=== PATIENT | male | born 1950 | race Caucasian/White ===

== ENCOUNTER 2016-04-16 11:30 | Inpatient (IN) | payer OTHER, BC ==
[2016-04-23] MEDS ORDERED: LIDOCAINE W/ SODIUM BICARB 0.5 ML SYR ONE ×2 (05:48→12:12)
[2016-04-23] MEDS ORDERED: Lactated Ringers 1,000 ML PRIMARY IV ONE ×4 (05:49→10:52)
[2016-04-23] MEDS ORDERED: PROMETHAZINE 25 MG/1 ML VIAL IM PRN (07:06)
[2016-04-23] MEDS ORDERED: NORMAL SALINE 10 ML SYRINGE FLUSH IVP PRN (07:06)
[2016-04-23] MEDS ORDERED: fentaNYL Inj 100 MCG/2 ML VIAL IVP PRN (07:06)
[2016-04-23] MEDS ORDERED: HYDROmorphone 2 MG/1 ML IVP PRN (07:06)
[2016-04-23] MEDS ORDERED: Ketorolac Inj 30 MG, Morphine Inj 5 MG, BUPivacaine Inj 0.25% PF 150 MG SPLASH ONE ×3 (07:15)
[2016-04-23] MEDS ORDERED: Lactated Ringers 1,000 ML PRIMARY IV SCH (07:15)
[2016-04-23] MEDS ORDERED: Sodium Chloride 0.9% 2,000 ML ONE (07:24)
[2016-04-23] MEDS ORDERED: ROCURONIUM 10 MG/1 ML - 5 ML VIAL IVP ONE ×2 (07:24→08:47)
[2016-04-23] MEDS ORDERED: Sodium Chloride 0.9% 500 ML ONE ×2 (07:24→11:02)
[2016-04-23] MEDS ORDERED: LIDOCAINE MPF 2% - 5 ML (20 MG/1 ML) ONE (07:25)
[2016-04-23] MEDS ORDERED: fentaNYL Inj 250 MCG/5 ML VIAL ONE (07:26)
[2016-04-23] MEDS ORDERED: MIDAZOLAM 5 MG/1 ML ONE (07:26)
[2016-04-23] MEDS ORDERED: ceFAZolin Inj 3 GM in Sodium Chloride 0.9% 100 ML IV ONE (07:30)
[2016-04-23] MEDS ORDERED: Bacteriostatic NaCl Inj 30ml Vial ONE (07:32)
[2016-04-23] MEDS ORDERED: Gentamicin Inj 40 MG/ML VIAL ONE (07:32)
[2016-04-23] MEDS ORDERED: Sodium Chloride 0.9% vial 30 ML ONE (07:32)
[2016-04-23] MEDS ORDERED: BACITRACIN 50,000 UNIT VIAL IRRIG ONE (07:32)
[2016-04-23] MEDS ORDERED: HEPARIN 10,000 UNIT/1 ML ONE (07:33)
[2016-04-23] MEDS ORDERED: BUPivacaine Liposome/PF (Exparel) Inj 20ml vial INFIL ONE ×2 (07:33→08:45)
[2016-04-23] MEDS ORDERED: LIDOCAINE HCL 2 % 10 ML JELLY URO-JECT TOPICAL ONE (08:02)
[2016-04-23] MEDS ORDERED: KETAMINE 100 MG/1 ML - 5 ML ONE (08:39)
[2016-04-23] MEDS ORDERED: HYDROmorphone 2 MG/1 ML ONE (08:40)
[2016-04-23] MEDS ORDERED: GLYCOPYRROLATE 0.2 MG/1 ML VIAL ONE (09:42)
[2016-04-23] MEDS ORDERED: ePHEDrine Inj 50 MG/ML AMP ONE (09:42)
[2016-04-23] MEDS ORDERED: TRANEXAMIC ACID 1,000 MG / 10 ML VIAL ONE (10:05)
[2016-04-23] MEDS ORDERED: Sodium Chloride 0.9% 100 ML IV ONE (10:05)
[2016-04-23] MEDS ORDERED: TRANEXAMIC ACID 1,000 MG / 10 ML VIAL IRRIG ONE (10:05)
[2016-04-23] MEDS ORDERED: ONDANSETRON 4 MG/2 ML VIAL ONE (10:59)
[2016-04-23] MEDS ORDERED: fentaNYL Inj 100 MCG/2 ML VIAL ONE (12:15)
[2016-04-23] MEDS ORDERED: FUROSEMIDE 10 MG/1 ML - 2 ML VIAL IVP ONE (12:19)
[2016-04-23] MEDS ORDERED: FUROSEMIDE 10 MG/1 ML - 4 ML ONE (12:21)
[2016-04-23] MEDS ORDERED: Sodium Chloride 0.9% 1,000 ML ONE (12:37)
--- NOTE | 2016-04-23 13:10 | DI ---
XR HIP COMPLETE MIN 2VW U/L,04/23/2016 11:08 AM: Clinical History: Left hip pain Previous Exam: April 22, 2016 Findings: 3 views of the left hip are obtained, and demonstrate postsurgical changes consistent with a left tot al hip arthroplasty. There is a RUPA drain noted as well. Overlying skin dani are noted. Mild degenerative changes of the sacroiliac joints are seen. Impression: Status post left total hip arthroplasty.
[2016-04-23] MEDS ORDERED: diphenhydrAMINE 25 MG CAPSULE PO PRN (13:37)
[2016-04-23] MEDS ORDERED: MAG HYDROX/AL HYDROX/SIMETH 30 ML SUSP PO PRN (13:37)
[2016-04-23] MEDS ORDERED: Prochlorperazine Tab 10 MG TAB PO PRN (13:37)
[2016-04-23] MEDS ORDERED: CALCIUM CARBONATE 500 MG (TUMS) CHEWABLE TABLET PO PRN (13:37)
[2016-04-23] MEDS ORDERED: IBUPROFEN 400 MG TABLET PO PRN (13:37)
[2016-04-23] MEDS ORDERED: Ondansetron ODT Tab 8 MG TAB PO PRN (13:37)
[2016-04-23] MEDS ORDERED: MORPHINE SULFATE 2 MG/1 ML IVP PRN (13:37)
[2016-04-23] MEDS ORDERED: BISACODYL 10 MG SUPPOSITORY RECTAL PRN (13:37)
[2016-04-23] MEDS ORDERED: ACETAMINOPHEN 325 MG TABLET PO PRN (13:37)
[2016-04-23] MEDS ORDERED: BISACODYL 5 MG TABLET PO PRN (13:37)
[2016-04-23] MEDS ORDERED: MORPHINE SULFATE 10 MG/1 ML IV PRN (13:42)
[2016-04-23] MEDS ORDERED: MORPHINE SULFATE 4 MG/1 ML IV PRN (13:42)
[2016-04-23] MEDS ORDERED: MORPHINE SULFATE 2 MG/1 ML IV PRN (13:42)
--- NOTE | 2016-04-23 13:51 | ORTHO.PROG ---
Last Taken Vital Signs: Vital Signs - Last Taken Temperature 97.0 F 04/23/16 13:10 Pulse Rate 64 04/23/16 13:10 Respiratory Rate 16 04/23/16 13:10 Blood Pressure 121/79 04/23/16 13:10 Pulse Ox Subjective: Patient notes with movement of the left hip not having any significant pain. Objective: Drain has about 25 mL theKCI drain has nothing in it as of yet. Motor and sensory exam the lower extremity is good the distal ankle and toes, mild amount of swelling of the thigh. Intake and Output - 8hrs 04/22/16 04/22/16 04/23/16 04/23/16 13:59 21:59 05:59 13:59 Intake: IV 4100 OrthoPat 300 Output: Output, Urine Amount 345 Output, Estimated Blood 545 Loss Amount Other: Weight 127.459 kg Vital Signs (24 hrs) Temp Pulse Resp BP 04/23/16 13:10 97.0 F 64 16 121/79 04/23/16 13:00 97.0 F 59 L 17 120/78 04/23/16 12:50 97.0 F 64 18 120/81 04/23/16 12:40 97.0 F 60 15 109/76 04/23/16 12:25 97.2 F 69 19 122/84 04/23/16 12:15 97.2 F 68 16 123/78 04/23/16 12:00 97.2 F 66 16 113/75 04/23/16 11:55 97.2 F 72 16 115/71 04/23/16 11:50 97.2 F 72 14 110/74 04/23/16 11:45 97.2 F 70 14 113/66 04/23/16 11:40 97.2 F 73 16 104/69 04/23/16 11:35 97.2 F 83 14 115/73 04/23/16 11:29 97.2 F 82 14 118/69 04/23/16 06:27 98.2 F 101 H 18 143/97 Assessment: Left anterior total hip replacement doing well Plan: Patient will start on his Xarelto tomorrow after discussing with the hospitalist , this is for his atrial fibrillation but will also serve as DVT prophylaxis. Patient will be partial weightbearing with walker for the first 2 weeks. Physical therapy and occupational therapy daily Laboratories are pending for morning.
[2016-04-23] MEDS: HYDROcodone-APAP 10 MG-325 MG TABLET PO PRN ×3 (14:12→22:20)
[2016-04-23] MEDS: ONDANSETRON 4 MG/2 ML VIAL IVP PRN (14:12)
[2016-04-23] MEDS: Lactated Ringers 1,000 ML PRIMARY IV SCH (14:22)
--- NOTE | 2016-04-23 14:53 | CONSULT ---
Consult Note - Consult Consult Date: 04/23/16 Reason for Consult: PostOp Consulation : Ortho Requesting Physician: Dr. Claire Primary Care Provider: NONE NONE History and Physical - History of Present Illness Date and Time of Service: 04/23/2016, 1445 Chief Complaint: Left hip pain History of Present Illness: This is a very pleasant 66-year-old male tripped fibrillation, hypertension, and hip arthritis. He had his right hip surgery done about 4 years ago and since that time he has had left hip pain that is been persistent. He's been using ibuprofen, up to 6 tablets per day. However is been causing problems with his kidneys and he opted for a left anterior hip replacement with Dr. Claire today. Please see that surgical note. Thus far post surgery, he denies chest pain, denies shortness breath, but complains of nausea. Outside of his atrial fibrillation, he has not had a history of a stroke and he is on blood pressure medications. I do see that he is on any rate controlling agents based on my review of his medicines at this point, and takes Cardizem. I spoke with Dr. Claire regarding the patient's Xarelto therapy for stroke prevention for atrial fibrillation. From a surgical standpoint, it would be best to hold that for at least 24 hours, and I think I am amenable to that. There is a transient increase risk of stroke and I discussed that with the patient and his family present at bedside, but I think the surgical bleeding risks outweigh the transient increase at this time, and Xarelto will be resumed tomorrow. Past Medical History Medical History: 1. Hypertension. 2. Atrial fibrillation. 3. Hypothyroidism. 4. Bilateral hip osteoarthritis. Surgical History: 1. Tonsillectomy. 2. Right total hip replacement. 3. Umbilical hernia repair Pertinent Family History: Significant for coronary artery disease in both of his parents. Past Social History: Does not smoke or drink. . Arms. Has 2 sons and 2 [id number] as well as Gran children. Lives in [place], [place]. Tobacco Use: Never Smoker Do you dip or chew tobacco: (QUIT 2 YRS AGO) Substance Use Type: None Alcohol Use: None Review of Systems - Constitutional Constitutional: REPORTS: Negative System Review - Respiratory Respiratory: REPORTS: Negative System Review - Cardiovascular Cardiovascular: REPORTS: Negative System Review - Gastrointestinal Gastrointestinal / Abdominal: REPORTS: Nausea - Musculoskeletal Musculoskeletal: REPORTS: Joint Pain - Hips, See HPI - Neurological Neurologic: REPORTS: Negative System Review Medication / Allergies Home Medications: Home Medications Medication Instructions Recorded Confirmed Type Rivaroxaban [Xarelto] 10 mg PO DAILY tab 03/13/16 04/22/16 History Diltiazem HCl 1 tab PO BID tab 03/15/16 04/22/16 History Hydralazine HCl 1 tab PO TID tab 03/15/16 04/22/16 History Levothyroxine Sodium [Synthroid] 1 tab PO DAILY tab 03/15/16 04/23/16 History Lisinopril 1 tab PO QD tab 03/15/16 04/22/16 History Allergies/Adverse Reactions: Allergies Allergy/AdvReac Type Severity Reaction Status Date / Time No Known Allergies Allergy Unverified 04/23/16 13:40 Exam - Vitals Vital Signs: Vital Signs Temperature 97.3 F Temperature Source Oral Pulse Rate [Pulse Oximeter] 64 Pulse Rate [Apical] 64 Pulse Rate 64 Respiratory Rate 16 Blood Pressure [Right Arm] 138/86 Blood Pressure 121/79 Pulse Ox 94 Oxygen Flow Rate 3 Oxygen Flow Rate 3 Oxygen Delivery Method Nasal Cannula Height 6 ft 1 in Weight 281 lb - General General Appearance: POSITIVE: No Acute Distress, Cooperative - Head Head Exam: POSITIVE: Normal Inspection, Normocephalic, Atraumatic - Eye Eye Exam: POSITIVE: No Scleral Icterus - ENT ENT Exam: POSITIVE: Mucous Membranes Moist - Respiratory Respiratory Exam: POSITIVE: Clear to Auscultation - Bilaterally, Breathing Non Labored - Cardiovascular Cardiovascular Exam: POSITIVE: RRR, No Murmur, No Clicks, No Gallops, No Rubs, No JVD - GI/Abdominal GI/Abdominal Exam: POSITIVE: Normal Bowel Sounds, Non Tender, Non Distended, Soft - Rectal Rectal Exam: POSITIVE: Deferred - External Exam: POSITIVE: Deferred Exam: POSITIVE: Deferred - Extremities Extremities Exam: POSITIVE: No Clubbing Present, No Edema Present, No Cyanosis Present - Neurological Neurological Exam: POSITIVE: Alert, Oriented x 3, No Facial Droop, Speech Intact / Clear - Psychiatric Psychiatric Exam: POSITIVE: Normal Affect, Normal Mood Results - Labs Labs - Last 24 Hours: Labs from 04/22/2016 showed the following: Urine negative urinalysis Sodium was noted on 03/27/2016 to be the followin, potassium 3.6, chloride 107, CO2 28, BUN 20, creatinine 1.35, total protein 6.6, albumin 3.9, total bilirubin 2.4, AST 22, ALT 31, alkaline phosphatase 63 White blood cell count 6.8, hemoglobin 17.5, hematocrit 51.2, platelets 165,000 Urinalysis from 03/27/2016 showed 2+ proteins and that also appears on yesterday 's urinalysis. The patient has an antibody screen that was negative and he has A- blood type - EKG Data -: EKG Interpreted by Me Rate: Normal (Patient has atrial fibrillation based on my review of his preoperative EKG.) - EKG Data EKG Interpretation: Other Assessment and Plan - Patient Problems (1) Atrial fibrillation Current Visit: Yes Status: Acute Qualifiers: Atrial fibrillation type: chronic Qualified Description: Chronic atrial fibrillation Qualifier Code(s): (I48.2) Chronic atrial fibrillation (2) Hypertension Current Visit: Yes Status: Acute (3) Proteinuria Current Visit: Yes Status: Acute Qualifiers: Proteinuria type: unspecified Qualified Description: Proteinuria, unspecified type Qualifier Code(s): (R80.9) Proteinuria, unspecified (4) Hip arthritis Current Visit: Yes Status: Acute (5) Hypothyroidism Current Visit: Yes Status: Acute Qualifiers: Hypothyroidism type: acquired Qualified Description: Acquired hypothyroidism Qualifier Code(s): (E03.9) Hypothyroidism, unspecified - Assessment / Plan Additional Assessment/Plan Details: Resume Xarelto tomorrow. It appears it is been on 10 mg in the clinic, and a think an appropriate dose will be 20 mg by mouth daily. Continue diltiazem and blood pressure medications. With the proteinuria, he may need more extensive kidney evaluation and workup. Check his creatinine tomorrow, was 1.35 prior to surgery but now off of ibuprofen so hopefully that will improve. Probably has chronic kidney disease, stage III, but will evaluate that tomorrow. I will note that the patient does have chronic kidney disease, and is clearance is less than 60, that may mean that the patient would need a dose reduction in the Xarelto to 15 mg if his clearance is between 15-50, otherwise we may need to consider other anticoagulant choices. Thank you for this consult, will be our pleasure to continue to assist this patient during his hospital stay regarding his atrial fibrillation and hypertension and other medical issues.
[2016-04-23] MEDS ORDERED: LABETALOL 20 MG/4 ML (5 MG/1 ML) SYRINGE IVP PRN (15:17)
[2016-04-23] MEDS: ceFAZolin Inj 2gm (Premix) 2 GM in Dextrose 1 BAG IV SCH (16:13)
[2016-04-23] MEDS: DILTIAZEM 60 MG PO SCH (20:20)
[2016-04-23] MEDS: DOCUSATE 100 MG CAPSULE PO SCH (20:20)
[2016-04-23] MEDS ORDERED: DILTIAZEM 60 MG TABLET PO SCH (21:00)
[2016-04-24] MEDS: Lactated Ringers 1,000 ML PRIMARY IV SCH (00:11)
[2016-04-24] MEDS: ceFAZolin Inj 2gm (Premix) 2 GM in Dextrose 1 BAG IV SCH (00:11)
[2016-04-24] MEDS: HYDROcodone-APAP 10 MG-325 MG TABLET PO PRN ×5 (02:40→22:03)
[2016-04-24] MEDS: LEVOTHYROXINE 112 MCG TABLET PO SCH (05:34)
[2016-04-24 06:04] LABS: HEMATOCRIT 46.8 % (42.0-52.0); HEMOGLOBIN 15.5 g/dL (14.0-18.0); MEAN CORPUSCULAR HEMOGLOBIN 31.4 PG (27-31); MEAN CORPUSCULAR HGB CONC 33.1 g/dL (33-37); MEAN PLATELET VOLUME 11.2 FL (7.4-12.2); RDW COEFFICIENT OF VARIATION 13.4 % (11.5-14.5); RED BLOOD COUNT 4.94 10^6/uL (4.70-6.10); WHITE BLOOD COUNT 14.87 10^3/uL (4.8-10.8)
[2016-04-24] MEDS ORDERED: Lactated Ringers 1,000 ML PRIMARY IV SCH (06:20)
[2016-04-24 06:21] LABS: BLOOD UREA NITROGEN 29 mg/dL (7-22); BUN/CREATININE RATIO 24.16 (6-20); CALCIUM 8.8 mg/dL (8.7-10.7); CHLORIDE 106 meq/L (98-112); CREATININE 1.2 mg/dL (0.70-1.50); EST GLOMERULAR FILTRATION > 60 (>60 ml/min/1.73m(2)); GLUCOSE 154 mg/dL (78-110); SODIUM 139 meq/L (135-145)
--- NOTE | 2016-04-24 07:46 | ORTHO.PROG ---
Last Taken Vital Signs: Vital Signs - Last Taken Temperature 98.9 F 04/24/16 03:10 Pulse Rate 103 H 04/24/16 03:10 Respiratory Rate 20 04/24/16 03:10 Blood Pressure 145/98 04/24/16 03:10 Pulse Ox 91 04/24/16 05:47 Subjective: Patient feels like the pain in his hip is different than his arthritis pain. Patient trouble sleeping last night At 3 in the morning and ambulated was having some low back pain. States he did well with this with a walker maximum assist Objective: Clinically the patient with a good sensory exam of the lower extremity a good motor examination no marked swelling no bleeding or ecchymosis. Her drain was removed from deep within the soft tissues. Intake and Output - 8hrs 04/23/16 04/23/16 04/24/16 04/24/16 13:59 21:59 05:59 13:59 Intake: IV 4100 200 1419 Intake Oral Amount 640 300 OrthoPat 300 Output: Output, Drainage Amount 60 140 90 LEFT HIP/PREVENA DRAIN 60 140 90 Output, Urinary Catheter 475 375 Amount Output, Urine Amount 345 Output, Estimated Blood 545 Loss Amount Other: Percent Meal Consumed 50% Weight 127.459 kg Weight Measurement Method Estimated by Staff Laboratory Results 04/24/16 Range/Units 05:53 WBC 14.87 H (4.8-10.8) 10^3/uL RBC 4.94 (4.70-6.10) 10^6/uL Hgb 15.5 (14.0-18.0) g/dL Hct 46.8 (42.0-52.0) % MCV 94.7 H (80-90) FL MCH 31.4 H (27-31) PG MCHC 33.1 (33-37) g/dL RDW Std Deviation 45.2 (39-50) fL RDW Coeff of Kaelyn 13.4 (11.5-14.5) % Plt Count 167 (140-350) 10*3/uL MPV 11.2 (7.4-12.2) FL Sodium 139 (135-145) meq/L Potassium 4.0 (3.8-5.2) meq/L Chloride 106 (98-112) meq/L Carbon Dioxide 25 (23-33) meq/L Anion Gap 8 (5-20) BUN 29 H (7-22) mg/dL Creatinine 1.2 (0.70-1.50) mg/dL Estimated GFR > 60 (>60 ml/min/1.73m(2)) BUN/Creatinine Ratio 24.16 H (6-20) Glucose 154 H (78-110) mg/dL Calculated Osmolality 296.0 H (267-292) mOsm/kg Calcium 8.8 (8.7-10.7) mg/dL Previna drain is in place and working well Assessment: Left total hip replacement doing well Proteinuria, being evaluated with a 24-hour urine with a kidney ultrasound pending Plan: Work with physical therapy and occupational therapy Anticoagulation for his atrial fibrillation.
[2016-04-24] MEDS: DOCUSATE 100 MG CAPSULE PO SCH ×2 (08:49→22:04)
[2016-04-24] MEDS: LISINOPRIL 5 MG TABLET PO SCH (08:52)
[2016-04-24 08:54] LABS: HEMOGLOBIN A1C 6.64 % (4.2-6.0); MEAN BLOOD GLUCOSE (CALC) 135.112 mg/dL
[2016-04-24] MEDS: DILTIAZEM 60 MG PO SCH ×2 (08:57→22:04)
[2016-04-24] MEDS ORDERED: Rivaroxaban Tab 10 MG TAB PO SCH ×3 (09:00→10:49)
--- NOTE | 2016-04-24 10:32 | CRNA.PROGR ---
Anesthesia Note Anesthesia Progress Note: Sitting up in chair talking with family. Has just returned from PT. Discussed anesthetic course and expectations, he has no questions or concerns at this time. Vital Signs (24 hrs) Temp Pulse Pulse Pulse Resp BP BP 04/24/16 07:45 98.4 F 85 16 98/64 04/24/16 05:47 04/24/16 03:10 98.9 F 103 H 20 145/98 04/24/16 00:06 98.3 F 79 22 04/23/16 21:00 97.6 F 72 20 04/23/16 15:58 97 F 76 18 04/23/16 15:20 04/23/16 15:06 66 16 04/23/16 15:00 97 F 73 20 04/23/16 14:30 96.9 F 69 20 04/23/16 14:15 97 F 66 20 04/23/16 13:24 97.3 F 64 64 16 04/23/16 13:10 97.0 F 64 16 121/79 04/23/16 13:00 97.0 F 59 L 17 120/78 04/23/16 12:50 97.0 F 64 18 120/81 04/23/16 12:40 97.0 F 60 15 109/76 04/23/16 12:25 97.2 F 69 19 122/84 04/23/16 12:15 97.2 F 68 16 123/78 04/23/16 12:00 97.2 F 66 16 113/75 04/23/16 11:55 97.2 F 72 16 115/71 04/23/16 11:50 97.2 F 72 14 110/74 04/23/16 11:45 97.2 F 70 14 113/66 04/23/16 11:40 97.2 F 73 16 104/69 04/23/16 11:35 97.2 F 83 14 115/73 04/23/16 11:29 97.2 F 82 14 118/69 BP Pulse Ox 04/24/16 07:45 92 04/24/16 05:47 91 04/24/16 03:10 91 04/24/16 00:06 129/94 96 04/23/16 21:00 130/81 95 04/23/16 15:58 137/82 96 04/23/16 15:20 94 04/23/16 15:06 02/21/17 15:00 156/96 96 04/23/16 14:30 154/105 96 04/23/16 14:15 143/79 97 04/23/16 13:24 138/86 94 04/23/16 13:10 04/23/16 13:00 04/23/16 12:50 04/23/16 12:40 04/23/16 12:25 04/23/16 12:15 04/23/16 12:00 04/23/16 11:55 04/23/16 11:50 04/23/16 11:45 04/23/16 11:40 04/23/16 11:35 04/23/16 11:29 Laboratory Results 04/24/16 04/24/16 Range/Units 05:30 05:53 WBC 14.87 H (4.8-10.8) 10^3/uL RBC 4.94 (4.70-6.10) 10^6/uL Hgb 15.5 (14.0-18.0) g/dL Hct 46.8 (42.0-52.0) % MCV 94.7 H (80-90) FL MCH 31.4 H (27-31) PG MCHC 33.1 (33-37) g/dL RDW Std Deviation 45.2 (39-50) fL RDW Coeff of Kaelyn 13.4 (11.5-14.5) % Plt Count 167 (140-350) 10*3/uL MPV 11.2 (7.4-12.2) FL Sodium 139 (135-145) meq/L Potassium 4.0 (3.8-5.2) meq/L Chloride 106 (98-112) meq/L Carbon Dioxide 25 (23-33) meq/L Anion Gap 8 (5-20) BUN 29 H (7-22) mg/dL Creatinine 1.2 (0.70-1.50) mg/dL Estimated GFR > 60 (>60 ml/min/1.73m(2)) BUN/Creatinine Ratio 24.16 H (6-20) Glucose 154 H (78-110) mg/dL Mean Blood Glucose 135.112 mg/dL Hemoglobin A1c 6.64 H (4.2-6.0) % Calculated Osmolality 296.0 H (267-292) mOsm/kg Calcium 8.8 (8.7-10.7) mg/dL
--- NOTE | 2016-04-24 10:49 | PDOC(PROG) ---
Date and Time of Service: 04/24/2016, 1045 Interval History: Still feels a little nauseous, no chest pain and no shortness of breath. States his pain is better controlled than his last hip replacement. Her therapy and states that when okay today. We reviewed his blood sugar and hemoglobin A1c, it appears the patient has diabetes. Even his proteinuria, I think we should aggressively treat this and only with dietary interventions but add metformin now. Objective : Data - Labs CBC and BMP: 04/24/16 05:53 04/24/16 05:53 Labs - Last 24 Hours: Laboratory Results 04/24/16 04/24/16 Range/Units 05:30 05:53 WBC 14.87 H (4.8-10.8) 10^3/uL RBC 4.94 (4.70-6.10) 10^6/uL Hgb 15.5 (14.0-18.0) g/dL Hct 46.8 (42.0-52.0) % MCV 94.7 H (80-90) FL MCH 31.4 H (27-31) PG MCHC 33.1 (33-37) g/dL RDW Std Deviation 45.2 (39-50) fL RDW Coeff of Kaelyn 13.4 (11.5-14.5) % Plt Count 167 (140-350) 10*3/uL MPV 11.2 (7.4-12.2) FL Sodium 139 (135-145) meq/L Potassium 4.0 (3.8-5.2) meq/L Chloride 106 (98-112) meq/L Carbon Dioxide 25 (23-33) meq/L Anion Gap 8 (5-20) BUN 29 H (7-22) mg/dL Creatinine 1.2 (0.70-1.50) mg/dL Estimated GFR > 60 (>60 ml/min/1.73m(2)) BUN/Creatinine Ratio 24.16 H (6-20) Glucose 154 H (78-110) mg/dL Mean Blood Glucose 135.112 mg/dL Hemoglobin A1c 6.64 H (4.2-6.0) % Calculated Osmolality 296.0 H (267-292) mOsm/kg Calcium 8.8 (8.7-10.7) mg/dL Objective : Exam - General General Appearance: No Acute Distress, Cooperative Additional General Exam Details: Vital Signs - Last Taken Temperature 98.4 F 04/24/16 07:45 Pulse Rate 85 04/24/16 07:45 Respiratory Rate 16 04/24/16 07:45 Blood Pressure 98/64 04/24/16 07:45 Pulse Ox 92 04/24/16 07:45 - Head Head Exam: Normal Inspection, Normocephalic, Atraumatic - Eye Eye Exam: No Scleral Icterus - Respiratory Respiratory Exam: Clear to Auscultation - Bilaterally, Breathing Non Labored - Cardiovascular Cardiovascular Exam: RRR, No Murmur, No Clicks, No Gallops, No Rubs, No JVD - GI/Abdominal GI/Abdominal Exam: Normal Bowel Sounds, Non Tender, Non Distended, Soft - Extremities Extremities Exam: No Clubbing Present, No Cyanosis Present, +1 Edema (Trace edema in the lower extremities.) Additional Extremities Exam Details: Left hip is dressed, appears clean, dry, intact. - Neurological Neurological Exam: Alert, Oriented x 3, No Facial Droop, Speech Intact / Clear Assessment and Plan - Patient Problems (1) Atrial fibrillation Current Visit: Yes Status: Acute Qualifiers: Atrial fibrillation type: chronic Qualified Description: Chronic atrial fibrillation Qualifier Code(s): (I48.2) Chronic atrial fibrillation (2) Diabetes mellitus type II, controlled Current Visit: Yes Status: Acute Qualifiers: Diabetes mellitus complication status: without complication Diabetes mellitus dedicated intermodal truck driver insulin use: without dedicated intermodal truck driver use Qualified Description : Controlled type 2 diabetes mellitus without complication, without long-term current use of insulin Qualifier Code(s): (E11.9) Type 2 diabetes mellitus without complications (3) Hypertension Current Visit: Yes Status: Acute (4) Proteinuria Current Visit: Yes Status: Acute Qualifiers: Proteinuria type: unspecified Qualified Description: Proteinuria, unspecified type Qualifier Code(s): (R80.9) Proteinuria, unspecified (5) Hip arthritis Current Visit: Yes Status: Acute (6) Hypothyroidism Current Visit: Yes Status: Acute Qualifiers: Hypothyroidism type: acquired Qualified Description: Acquired hypothyroidism Qualifier Code(s): (E03.9) Hypothyroidism, unspecified - Assessment / Plan Additional Assessment/Plan Details: Patient's renal function is significantly improved off of anti-inflammatories and I think he should probably go back to 20 mg of Xarelto daily. His creatinine clearance appears to be above 60. Increased Xarelto to 29 g by mouth daily. For the diabetes, get a dietitian consult as well as start metformin 500 mg by mouth daily. Await protein studies.
--- NOTE | 2016-04-24 16:53 | PT.PROG ---
Progress Note Progress Note: S. Patient stated that his hip is a little tight after sitting in the chair since this morning. O. Patient was wheeled to the therapy gym, then transferred to the table where he had heat x 20 minutes then performed exercises in the form of; heel slides, quad sets, glut sets, 4 way ankle (yellow), SAQ, Long arc quads, sit to stands all x 10 bilaterally. Patient ambulated approximately 100 feet with walker and SBG. Patient was wheeled to his room where he was left in his chair with alarm and call light. A. Patient tolerated exercises well, he was able to perform all exercises this afternoon. He would continue to benefit from skilled therapy at this time. P. Continue POC.
[2016-04-25] MEDS: HYDROcodone-APAP 10 MG-325 MG TABLET PO PRN ×2 (03:17→06:56)
[2016-04-25] MEDS: LEVOTHYROXINE 112 MCG TABLET PO SCH (05:33)
[2016-04-25 06:04] LABS: HEMATOCRIT 45.5 % (42.0-52.0); HEMOGLOBIN 14.7 g/dL (14.0-18.0); MEAN CORPUSCULAR HEMOGLOBIN 31.2 PG (27-31); MEAN CORPUSCULAR HGB CONC 32.3 g/dL (33-37); MEAN PLATELET VOLUME 11.6 FL (7.4-12.2); RDW COEFFICIENT OF VARIATION 13.6 % (11.5-14.5); RED BLOOD COUNT 4.71 10^6/uL (4.70-6.10); WHITE BLOOD COUNT 14.07 10^3/uL (4.8-10.8)
[2016-04-25 06:12] LABS: BUN/CREATININE RATIO 22.85 (6-20); CALCIUM 8.7 mg/dL (8.7-10.7); CREATININE 1.4 mg/dL (0.70-1.50); POTASSIUM 3.9 meq/L (3.8-5.2)
[2016-04-25] MEDS: metFORMIN 500 MG TABLET PO SCH (06:56)
[2016-04-25] MEDS: DOCUSATE 100 MG CAPSULE PO SCH ×2 (08:21→21:32)
[2016-04-25] MEDS: LISINOPRIL 5 MG TABLET PO SCH (08:21)
[2016-04-25] MEDS: DILTIAZEM 60 MG PO SCH ×2 (08:22→21:33)
[2016-04-25] MEDS: ONDANSETRON 4 MG/2 ML VIAL IVP PRN (09:41)
--- NOTE | 2016-04-25 10:52 | OT.PROG ---
Progress Note Progress Note: S: pt was in his bed upon arrival. pt reported that his pain was under control although feels very drugged and loopy. O: pt completed bed mobility with 10% assist for the left leg. pt completed LE dressing with min A, pt required cues to dress left leg first and trouble using the cargo broker due to his "foggyness". pt was able to dress UE Julia. pt completed sit to stand with CGA and was able to pull his pants up with CGA. pt ambulated 10 feet to the sink and completed grooming CGA. pt ambulated another 45 feet to the elevator with CGA and cues to keep the walker close. A: pt is physically improving although is struggling with the light headedness and foggyness, from what we presume is the pain medication. P: we will continue per POC to ensure pt is I with ADLs
[2016-04-25 11:12] LABS: 24 HOUR URINE CREA CONCENTR 254.3 mg/dL
[2016-04-25] MEDS ORDERED: Metoclopramide Inj 10 MG/2 ML VIAL IVP PRN (11:31)
--- NOTE | 2016-04-25 11:38 | PDOC(PROG) ---
Date and Time of Service: 04/25/2016, 11:30 Interval History: Denies chest pain or shortness breath. Still feels nauseous, this is the third day in a row that he's complained of nausea to me. He thought it might be related to metformin until people he did not have diabetes. I think it could be related to the pain medications, and he was at least amenable to trying to change those first. We'll make some changes in his pain medications this morning. He states his hip pain is significantly improved over the last 2 days since surgery. Objective : Data - Labs CBC and BMP: 04/25/16 05:28 04/25/16 05:28 Labs - Last 24 Hours: Laboratory Results 04/23/16 04/25/16 Range/Units 16:05 05:28 WBC 14.07 H (4.8-10.8) 10^3/uL RBC 4.71 (4.70-6.10) 10^6/uL Hgb 14.7 (14.0-18.0) g/dL Hct 45.5 (42.0-52.0) % MCV 96.6 H (80-90) FL MCH 31.2 H (27-31) PG MCHC 32.3 L (33-37) g/dL RDW Std Deviation 47.1 (39-50) fL RDW Coeff of Kaelyn 13.6 (11.5-14.5) % Plt Count 162 (140-350) 10*3/uL MPV 11.6 (7.4-12.2) FL Sodium 137 (135-145) meq/L Potassium 3.9 (3.8-5.2) meq/L Chloride 105 (98-112) meq/L Carbon Dioxide 26 (23-33) meq/L Anion Gap 6 (5-20) BUN 32 H (7-22) mg/dL Creatinine 1.4 (0.70-1.50) mg/dL Estimated GFR 51 (>60 ml/min/1.73m(2)) BUN/Creatinine Ratio 22.85 H (6-20) Glucose 126 H (78-110) mg/dL Calculated Osmolality 292.0 (267-292) mOsm/kg Calcium 8.7 (8.7-10.7) mg/dL Ur 24 Hour Volume Pending Urine protein studies are still pending. Objective : Exam - General General Appearance: No Acute Distress, Cooperative Additional General Exam Details: Vital Signs - Last Taken Temperature 98.2 F 04/25/16 11:00 Pulse Rate 83 04/25/16 11:00 Respiratory Rate 20 04/25/16 11:00 Blood Pressure 104/67 04/25/16 11:00 Pulse Ox 91 04/25/16 11:00 - Head Head Exam: Atraumatic - Eye Eye Exam: No Scleral Icterus - Respiratory Respiratory Exam: Clear to Auscultation - Bilaterally, Breathing Non Labored - Cardiovascular Cardiovascular Exam: RRR, No Murmur, No Clicks, No Gallops, No Rubs, No JVD - GI/Abdominal GI/Abdominal Exam: Normal Bowel Sounds, Non Tender, Non Distended, Soft - Extremities Extremities Exam: No Clubbing Present, No Edema Present, No Cyanosis Present - Neurological Neurological Exam: Alert, Oriented x 3, No Facial Droop, Speech Intact / Clear Additional Neurological Exam Details: He states he feels impaired under the influence of narcotics. Assessment and Plan - Patient Problems (1) CKD (chronic kidney disease), stage III Current Visit: Yes Status: Acute Comment: Review of the patient's creatinine today shows that it's 1.4, which gives him a creatinine clearance of 51. I suspect this is probably more likely his baseline. He has chronic kidney disease stage III and I will adjust Xarelto for that creatinine clearance. (2) Atrial fibrillation Current Visit: Yes Status: Acute Qualifiers: Atrial fibrillation type: chronic Qualified Description: Chronic atrial fibrillation Qualifier Code(s): (I48.2) Chronic atrial fibrillation (3) Diabetes mellitus type II, controlled Current Visit: Yes Status: Acute Qualifiers: Diabetes mellitus complication status: without complication Diabetes mellitus long term care pharmacist insulin use: without long term care pharmacist use Qualified Description : Controlled type 2 diabetes mellitus without complication, without long-term current use of insulin Qualifier Code(s): (E11.9) Type 2 diabetes mellitus without complications (4) Hypertension Current Visit: Yes Status: Acute (5) Proteinuria Current Visit: Yes Status: Acute Qualifiers: Proteinuria type: unspecified Qualified Description: Proteinuria, unspecified type Qualifier Code(s): (R80.9) Proteinuria, unspecified (6) Hip arthritis Current Visit: Yes Status: Acute (7) Hypothyroidism Current Visit: Yes Status: Acute Qualifiers: Hypothyroidism type: acquired Qualified Description: Acquired hypothyroidism Qualifier Code(s): (E03.9) Hypothyroidism, unspecified - Assessment / Plan Additional Assessment/Plan Details: Overall, I think that the patient's kidney disease is likely due to hypertension and diabetes and proteinuria. We are still waiting for proteinuria workup, but it's most likely related to diabetes and hypertension. The patient may benefit from seeing a heating operators engineer in the future but I will defer this to his primary care provider post discharge. Patient was very upset about the diagnosis of diabetes, stated he didn't have it , and stated that he did not want to be on metformin and that it causes nausea, but his symptom complaint has been present for the last 3 days, and I think it worthwhile to try to change his pain medications first. He was agreeable to this. I made those changes today. Continue metformin Dietary education prior to discharge. I will go ahead and order a renal ultrasound as well.
--- NOTE | 2016-04-25 12:07 | ORTHO.PROG ---
Last Taken Vital Signs: Vital Signs - Last Taken Temperature 98.2 F 04/25/16 11:00 Pulse Rate 83 04/25/16 11:00 Respiratory Rate 20 04/25/16 11:00 Blood Pressure 104/67 04/25/16 11:00 Pulse Ox 91 04/25/16 11:00 Subjective: Patient notes he is feeling a little nauseated this morning while walking down to therapy. Overall he feels his pain is reasonably well-controlled Objective: Dressing is clean and dry a mild amount of swelling to the thigh region. Dressing still in place working. Motor and sensory exam is nonfocal with good pulses and brisk refill. Intake and Output - 8hrs 04/24/16 04/24/16 04/25/16 04/25/16 13:59 21:59 05:59 13:59 Intake: IV 349 Intake Oral Amount 720 1000 300 360 Output: Output, Drainage Amount 90 LEFT HIP/PREVENA DRAIN 90 Output, Urine Amount 350 200 125 Other: Percent Meal Consumed 100% 100% 100% Weight 131.179 kg 131.905 kg Weight Measurement Method Standing Scale Standing Scale Laboratory Results 04/23/16 04/25/16 Range/Units 16:05 05:28 WBC 14.07 H (4.8-10.8) 10^3/uL RBC 4.71 (4.70-6.10) 10^6/uL Hgb 14.7 (14.0-18.0) g/dL Hct 45.5 (42.0-52.0) % MCV 96.6 H (80-90) FL MCH 31.2 H (27-31) PG MCHC 32.3 L (33-37) g/dL RDW Std Deviation 47.1 (39-50) fL RDW Coeff of Kaelyn 13.6 (11.5-14.5) % Plt Count 162 (140-350) 10*3/uL MPV 11.6 (7.4-12.2) FL Sodium 137 (135-145) meq/L Potassium 3.9 (3.8-5.2) meq/L Chloride 105 (98-112) meq/L Carbon Dioxide 26 (23-33) meq/L Anion Gap 6 (5-20) BUN 32 H (7-22) mg/dL Creatinine 1.4 (0.70-1.50) mg/dL Estimated GFR 51 (>60 ml/min/1.73m(2)) BUN/Creatinine Ratio 22.85 H (6-20) Glucose 126 H (78-110) mg/dL Calculated Osmolality 292.0 (267-292) mOsm/kg Calcium 8.7 (8.7-10.7) mg/dL Ur 24 Hour Volume Pending Assessment: Left total hip replacement overall doing well multiple medical issues. Plan: Continue with pain control though his symptoms of nausea may be secondary to pain medication they have recently been switched and we'll see if this is successful. Patient with no evidence of anemia at the current time. He will continue with physical therapy and occupational therapy and progressed forward.
[2016-04-25 13:41] LABS: ALP1 GLOB 0.3 g/dL (0.1-0.3); ALP2 GLOB 0.7 g/dL (0.6-1.0); BETA GLOBS 0.8 g/dL (0.7-1.2); GAMMA GLOBS 0.6 g/dL (0.6-1.6); TOT PRT SERUM 5.3 g/dL (6.3 - 7.9)
--- NOTE | 2016-04-25 13:42 | PT.PROG ---
Progress Note Progress Note: S. Patient stated that he is very nauseous this morning. O. Patient ambulated 60 feet to the wheelchair and was wheeled to the therapy gym where he had heat and performed sit to stands x 5. He was wheeled back to his room and transferred to his chair where he was left with alarm and call light. A. Patient was unable to perform more exercises due to nausea. altered mental state due to pain medication however, Patient agreed to do more therapy this afternoon. P. continue POC.
[2016-04-25] MEDS: oxyCODONE-ACETAMINOPHEN 5-325 TAB PO PRN ×3 (14:01→21:32)
[2016-04-25 14:06] LABS: IMPRESSION SEE COMMENTS (())
[2016-04-25 15:06] LABS: BETA-GLOBULIN 9 % (()); GAMMA-GLOBULIN 5 % (())
--- NOTE | 2016-04-25 15:54 | PT.PROG ---
Progress Note Progress Note: S. Patient stated that he is feeling better this afternoon compared to this morning. He stated he is a little sore however is not nauseous. O. Patient ambulated 70 feet to the wheelchair then was wheeled to the therapy gym where he had heat and performed exercises in the form of; heel slides, quad sets, ankle pumps, glute sets, short arc quads, seated long arc quads, heel toe raises, and sit to stands all x 10 bilaterally. Patient ambulated 100 feet to the wheelchair and was wheeled back to his room where he was left in bed with alarm and call light. A. Patient tolerated therapy well this afternoon, Patient was able to perform all exercises well, he continues to have altered mental status due to pain meds. Patient would continue to benefit from skilled therapy to increase strength, mobility and endurance. P. Continue POC.
[2016-04-25 16:22] LABS: 24 HR URINE CREA 1970.8 mg/DAY
[2016-04-26] MEDS: Sodium Chloride 0.9% 1,000 ML PRIMARY IV SCH ×2 (00:01→06:58)
[2016-04-26] MEDS: NORMAL SALINE 10 ML SYRINGE FLUSH IVP PRN ×2 (00:02→06:57)
[2016-04-26] MEDS: oxyCODONE-ACETAMINOPHEN 5-325 TAB PO PRN ×4 (04:36→16:41)
[2016-04-26 05:08] LABS: HEMATOCRIT 44.2 % (42.0-52.0); HEMOGLOBIN 14.4 g/dL (14.0-18.0); MEAN CORPUSCULAR HEMOGLOBIN 31.8 PG (27-31); MEAN CORPUSCULAR HGB CONC 32.6 g/dL (33-37); MEAN PLATELET VOLUME 11.6 FL (7.4-12.2); RDW COEFFICIENT OF VARIATION 13.5 % (11.5-14.5); RED BLOOD COUNT 4.53 10^6/uL (4.70-6.10); WHITE BLOOD COUNT 10.28 10^3/uL (4.8-10.8)
[2016-04-26 05:15] LABS: BUN/CREATININE RATIO 24.66 (6-20); CREATININE 1.5 mg/dL (0.70-1.50); POTASSIUM 4.1 meq/L (3.8-5.2)
[2016-04-26] MEDS: LEVOTHYROXINE 112 MCG TABLET PO SCH (05:32)
[2016-04-26] MEDS: metFORMIN 500 MG TABLET PO SCH (06:59)
--- NOTE | 2016-04-26 09:06 | ORTHO.PROG ---
Last Taken Vital Signs: Vital Signs - Last Taken Temperature 98.2 F 04/26/16 07:01 Pulse Rate 79 04/26/16 07:01 Respiratory Rate 18 04/26/16 07:01 Blood Pressure 117/71 04/26/16 07:01 Pulse Ox 93 04/26/16 07:01 Subjective: Patient notes his pain is reasonably well controlled on the left hip his nausea has improved. He is continuing with physical therapy and occupational therapy. Objective: Intake and Output - 8hrs 04/25/16 04/25/16 04/26/16 04/26/16 13:59 21:59 05:59 13:59 Intake: IV 625 Intake Oral Amount 960 300 600 Output: Output, Urine Amount 275 50 175 Other: Percent Meal Consumed 100% 100% Weight 131.905 kg 131.814 kg Weight Measurement Method Standing Scale Standing Scale Vital Signs (24 hrs) Temp Pulse Resp BP BP Pulse Ox 04/26/16 07:01 98.2 F 79 18 117/71 93 04/26/16 04:41 97.8 F 97 16 120/61 93 04/26/16 04:06 95 04/25/16 23:58 97.9 F 98 18 125/74 90 04/25/16 20:28 98.6 F 87 16 104/70 90 04/25/16 19:00 87 20 04/25/16 15:47 98.2 F 92 20 115/77 90 04/25/16 11:00 98.2 F 83 20 104/67 91 Laboratory Results 04/23/16 04/23/16 04/24/16 Range/Units 15:51 16:05 05:53 WBC (4.8-10.8) 10^3/uL RBC (4.70-6.10) 10^6/uL Hgb (14.0-18.0) g/dL Hct (42.0-52.0) % MCV (80-90) FL MCH (27-31) PG MCHC (33-37) g/dL RDW Std Deviation (39-50) fL RDW Coeff of Kaelyn (11.5-14.5) % Plt Count (140-350) 10*3/uL MPV (7.4-12.2) FL Sodium (135-145) meq/L Potassium (3.8-5.2) meq/L Chloride (98-112) meq/L Carbon Dioxide (23-33) meq/L Anion Gap (5-20) BUN (7-22) mg/dL Creatinine (0.70-1.50) mg/dL Estimated GFR (>60 ml/min/1.73m(2)) BUN/Creatinine Ratio (6-20) Glucose (78-110) mg/dL Calculated Osmolality (267-292) mOsm/kg Calcium (8.7-10.7) mg/dL Total Protein (PEP) 5.3 L (6.3 - 7.9) g/dL Albumin (PEP) 3.0 L (3.4-4.7) g/dL Albumin/Globulin Ratio 3.06 1.30 (()) % Iqhmy-5-Frssrxiai 0.3 (0.1-0.3) g/dL Xjnmz-6-Gbeptkwil 0.7 (0.6-1.0) g/dL Beta Globulins 0.8 (0.7-1.2) g/dL Gamma Globulins 0.6 (0.6-1.6) g/dL PEP Impression See comments (()) Ur Random Albumin 75 (()) % U Random Total Protein 18 (()) mg/dL Ur 24 Hour Volume 775 ML U Random s-6-Npclhrfk 3 (()) % U Random v-7-Dbdsvzgj 7 (()) % U Random Beta Globulin 9 (()) % U Random Gamma Glob 5 (()) % Urine PEP Impression See comments (()) Urine Immunofixation Pending 04/26/16 Range/Units 04:45 WBC 10.28 (4.8-10.8) 10^3/uL RBC 4.53 L (4.70-6.10) 10^6/uL Hgb 14.4 (14.0-18.0) g/dL Hct 44.2 (42.0-52.0) % MCV 97.6 H (80-90) FL MCH 31.8 H (27-31) PG MCHC 32.6 L (33-37) g/dL RDW Std Deviation 47.7 (39-50) fL RDW Coeff of Kaelyn 13.5 (11.5-14.5) % Plt Count 133 L (140-350) 10*3/uL MPV 11.6 (7.4-12.2) FL Sodium 139 (135-145) meq/L Potassium 4.1 (3.8-5.2) meq/L Chloride 104 (98-112) meq/L Carbon Dioxide 27 (23-33) meq/L Anion Gap 8 (5-20) BUN 37 H (7-22) mg/dL Creatinine 1.5 (0.70-1.50) mg/dL Estimated GFR 47 (>60 ml/min/1.73m(2)) BUN/Creatinine Ratio 24.66 H (6-20) Glucose 133 H (78-110) mg/dL Calculated Osmolality 298.0 H (267-292) mOsm/kg Calcium 9.0 (8.7-10.7) mg/dL Total Protein (PEP) (6.3 - 7.9) g/dL Albumin (PEP) (3.4-4.7) g/dL Albumin/Globulin Ratio (()) % Kwwta-9-Kmjeztqkg (0.1-0.3) g/dL Pxxzj-0-Lgeynbajd (0.6-1.0) g/dL Beta Globulins (0.7-1.2) g/dL Gamma Globulins (0.6-1.6) g/dL PEP Impression (()) Ur Random Albumin (()) % U Random Total Protein (()) mg/dL Ur 24 Hour Volume ML U Random k-8-Mxjfdevn (()) % U Random o-8-Zppmxlli (()) % U Random Beta Globulin (()) % U Random Gamma Glob (()) % Urine PEP Impression (()) Urine Immunofixation Patient's incision covered with the PREVINA a suction dressing looks good otherwise a mild amount of swelling to the thigh with no fluctuance or hematoma. Motor and sensory exam is generally nonfocal. Good pulses and brisk refill Assessment: Patient with a left total hip replacement overall doing well from this but other medical issues are slowing recovery. Plan: Continue with mobilization working with physical therapy and occupational therapy. Patient apparently has a kidney ultrasound to try to evaluate his lower creatinine clearance and elevated creatinine. Patient also with diabetes apparently from my understanding that was not recognized previously and patient concerned. Continue pain control
[2016-04-26] MEDS: DILTIAZEM 60 MG PO SCH ×2 (09:15→20:47)
[2016-04-26] MEDS: LISINOPRIL 5 MG TABLET PO SCH (09:16)
[2016-04-26] MEDS: Rivaroxaban Tab 10 MG TAB PO SCH (09:16)
[2016-04-26] MEDS: DOCUSATE 100 MG CAPSULE PO SCH ×2 (09:16→20:47)
[2016-04-26] MEDS: ONDANSETRON 4 MG/2 ML VIAL IVP PRN (09:21)
--- NOTE | 2016-04-26 09:37 | DI ---
US RETROPERITONEUM,04/26/2016 8:00 AM: Clinical History: Hypertension and proteinuria. Previous Exam: None at this facility. Findings: Multiple grayscale and color Doppler sonographic images are obtained through the retroperitoneum demo nstrating grossly normal bilateral kidneys. The right kidney measures 11.2 cm in length and the left kidney measures 13.2 centers in length. The renal cortices are normal. Both ureteral jets were identified. The urinary bladder is unremarkable. Impression: Normal retroperitoneal ultrasound.
--- NOTE | 2016-04-26 09:58 | OT.PROG ---
Progress Note Progress Note: S: pt was in bed upon arrival and just returned from a kidney ultrasound. pt was somewhat frustrated with some medications that were given yesterday that he is sure is what made him loopy and nauseated. O: pt demonstrated improved cognition and alertness today. he completed bed mobility, lower extremity dressing using a international accountant and sock aid with SBA after education. pt ambulated to the chair with CGA. pt is doing well with completing ADLs with the adaptive equipment. A: pt is doing much better today and tolerarating treatment. pt was left in his chair so he could order some breakfast before he came down to therapy for PT. at this time pt has completed all his OT goals and is hoping to go home today or tomorrow. P: discharge from OT services at this time.
--- NOTE | 2016-04-26 14:22 | PDOC(PROG) ---
Date and Time of Service: 04/26/2016, 1420 Interval History: No chest pain and no shortness of breath. States that his pain is under much better control and his nausea has resolved. He was able to eat a full breakfast and keep it down without problems. He still quite concerned about his diagnosis of diabetes, and I think given his renal insufficiency, stage III renal failure, the hemoglobin A1c being at around 6.4, I think he can try to diet control first and given that his hip has just been replaced perhaps he'll be able to exercise more to lose weight as well. He is very excited about that possibility versus taking the medication. Objective : Data - Labs CBC and BMP: 04/26/16 04:45 04/26/16 04:45 Labs - Last 24 Hours: Laboratory Results 04/23/16 04/23/16 04/26/16 Range/Units 15:51 16:05 04:45 WBC 10.28 (4.8-10.8) 10^3/uL RBC 4.53 L (4.70-6.10) 10^6/uL Hgb 14.4 (14.0-18.0) g/dL Hct 44.2 (42.0-52.0) % MCV 97.6 H (80-90) FL MCH 31.8 H (27-31) PG MCHC 32.6 L (33-37) g/dL RDW Std Deviation 47.7 (39-50) fL RDW Coeff of Kaelyn 13.5 (11.5-14.5) % Plt Count 133 L (140-350) 10*3/uL MPV 11.6 (7.4-12.2) FL Sodium 139 (135-145) meq/L Potassium 4.1 (3.8-5.2) meq/L Chloride 104 (98-112) meq/L Carbon Dioxide 27 (23-33) meq/L Anion Gap 8 (5-20) BUN 37 H (7-22) mg/dL Creatinine 1.5 (0.70-1.50) mg/dL Estimated GFR 47 (>60 ml/min/1.73m(2)) BUN/Creatinine Ratio 24.66 H (6-20) Glucose 133 H (78-110) mg/dL Calculated Osmolality 298.0 H (267-292) mOsm/kg Calcium 9.0 (8.7-10.7) mg/dL Albumin/Globulin Ratio 3.06 (()) % Ur Random Albumin 75 (()) % U Random Total Protein 18 (()) mg/dL Ur 24 Hour Volume 775 ML U Random z-8-Viplbpsz 3 (()) % U Random z-5-Tptcbgwt 7 (()) % U Random Beta Globulin 9 (()) % U Random Gamma Glob 5 (()) % Urine PEP Impression See comments (()) Urine Immunofixation Pending Objective : Exam - General General Appearance: No Acute Distress, Cooperative Additional General Exam Details: Vital Signs - Last Taken Temperature 98.7 F 04/26/16 12:02 Pulse Rate 95 04/26/16 12:02 Respiratory Rate 18 04/26/16 12:02 Blood Pressure 130/84 04/26/16 12:02 Pulse Ox 92 04/26/16 12:02 Much more mentally alert today. - Eye Eye Exam: No Scleral Icterus - Respiratory Respiratory Exam: Clear to Auscultation - Bilaterally, Breathing Non Labored - Cardiovascular Cardiovascular Exam: RRR, No Murmur, No Clicks, No Gallops, No Rubs, No JVD - GI/Abdominal GI/Abdominal Exam: Normal Bowel Sounds, Non Tender, Non Distended, Soft - Extremities Extremities Exam: No Clubbing Present, No Cyanosis Present, +1 Edema - Neurological Neurological Exam: Alert, Oriented x 3, No Facial Droop, Speech Intact / Clear, Abnormal Gait (Using a walker, is slow down by his recent hip surgery with some pain in the left hip.) Assessment and Plan - Patient Problems (1) Atrial fibrillation Current Visit: Yes Status: Acute Qualifiers: Atrial fibrillation type: chronic Qualified Description: Chronic atrial fibrillation Qualifier Code(s): (I48.2) Chronic atrial fibrillation (2) CKD (chronic kidney disease), stage III Current Visit: Yes Status: Acute (3) Diabetes mellitus type II, controlled Current Visit: Yes Status: Acute Qualifiers: Diabetes mellitus complication status: without complication Diabetes mellitus care home insulin use: without care home use Qualified Description : Controlled type 2 diabetes mellitus without complication, without long-term current use of insulin Qualifier Code(s): (E11.9) Type 2 diabetes mellitus without complications (4) Hypertension Current Visit: Yes Status: Acute (5) Proteinuria Current Visit: Yes Status: Acute Qualifiers: Proteinuria type: unspecified Qualified Description: Proteinuria, unspecified type Qualifier Code(s): (R80.9) Proteinuria, unspecified (6) Hip arthritis Current Visit: Yes Status: Acute (7) Hypothyroidism Current Visit: Yes Status: Acute Qualifiers: Hypothyroidism type: acquired Qualified Description: Acquired hypothyroidism Qualifier Code(s): (E03.9) Hypothyroidism, unspecified - Assessment / Plan Additional Assessment/Plan Details: Try to diet control and exercise controlled diabetes initially, may benefit from oral medication such as metformin if this doesn't work over the next 6 months. In terms of blood pressure, eventually the patient should have increase in his JAYDON inhibitor due to his proteinuria in the setting of diabetes and hypertension. I think the patient would benefit from a nephrology evaluation as an outpatient due to stage III chronic kidney disease. Lifetime avoidance of anti-inflammatories. Protein studies do not indicate that this is related to multiple myeloma, and likely this is all related to hypertension and diabetes. Patient does significantly better on Percocet in terms of his nausea symptoms, and continue that. He states his anus well-controlled today, and he is doing well with therapy and is hoping to go home tomorrow. That will be as per Dr. Claire. Given his creatinine clearance, his Xarelto should be continued at 10 mg by mouth daily which was his home dosing.
--- NOTE | 2016-04-26 14:52 | PTI REPORT ---
Thank you for the referral of Luis Cruz. He was seen on 04/24/16 for an inpatient evaluation status post left total hip arthroplasty with an anterior approach. SUBJECTIVE: The patient is a 66-year-old male who is one day status post left total hip arthroplasty. The patient does report that he was having some difficulty sleeping last night so he did get up at approximately 3:00 AM and did walk with supervisor public health nursing around the nurse's station with a walker. The patient states that it did feel good to get up and walk around and he is looking forward to starting therapy this morning. The patient states that three years ago he had his right total hip replaced. It is doing fairly well but he has had some sciatic nerve issue. The patient also has history for a-fib. The patient states that he lives in [place], [place] with his . He states that there are no stairs into his home. He does have stairs within his house, but everything that he needs to access is on the main floor. The patient denied using any type of assistive device prior to surgery and he states that he was taking 8-10 Ibuprofen a day prior to surgery due to his left hip pain. PAST MEDICAL HISTORY: Past medical history can be found in the patient's medical record. OBJECTIVE FINDINGS: General observations: The patient is alert and oriented to setting upon PT arrival. The patient does have a catheter in place, an IV, and is on two liters of oxygen. The patient states that Dr. Claire was in to see him earlier this morning and the drain was pulled from his wound and in its place is a type of a wound vac. Edema: The patient does have edema in his bilateral lower extremities. Pain: The patient reports a pain level of 1 to 2/10 on the verbal analog scale ( 0=no pain, 10=worst pain). Sensation: The patient denies any numbness into his left lower extremity. Bed mobility: The patient was able to move from a supine to seated position with mod assist x1 in order to help maneuver his left lower extremity. In a seated position the patient denied any lightheadedness or dizziness. Transfers: A gait belt was placed around the patient and he was instructed on how to properly perform a sit to stand transfer. The patient was able to do so with min assist x1. The patient was able to independently perform a standing to seated transfer with verbal cueing for proper hand placement. Balance: The patient demonstrated fair standing initial balance. He denied any lightheadedness or dizziness. Walker was adjusted to the patient's appropriate height. Ambulation: The patient ambulated with assist of one x50 feet from his room to the elevator. ASSESSMENT: The patient has a good prognosis. Problem List: Pain in the left hip Decreased passive and active range of motion in the left hip Decreased strength in the left hip Short-Term Goals: To be met by discharge from inpatient: Patient will be able to transfer from bed to stand independently and safely. Patient will be able to ambulate at least 150 feet with standard walker and weight-bearing as tolerated on the left. Patient will be able to ascend and descend at least five stairs with standard walker and weight-bearing as tolerated on the left. Long-Term Goals: To be met following discharge from inpatient: Patient may be seen by outpatient physical therapy in [place] if deemed necessary at time of discharge. TREATMENT PLAN: Patient will be seen B.I.D during the week and one time per day over the weekend as an inpatient to address independence and safety with transfers, gait training, stair training, and general strengthening and activities within hip protocol. INITIAL TREATMENT: Treatment today consisted of the initial evaluation followed by the patient being brought down to the therapy department. The patient performed transfer from his wheelchair to the mat with assist of one. The patient did require mod assist x1 in order to help lift his left lower extremity onto the mat. The patient received an application of moist heat pack x20 minutes including set up to the left hip followed by instructions in therapeutic exercises including glut squeezes, quad sets, heel slides, four way ankle exercises, and short arc quads bilaterally. Following exercises the patient ambulated x25 feet with standard walker and assist of two to manage lines and leads. The patient was brought up to his room. He was left in his chair with chair alarm set and call light within reach. [facility]
--- NOTE | 2016-04-26 15:19 | OTI REPORT ---
Thank you for the referral of Luis Cruz. He was seen on 04/24/16 for a left total hip arthroplasty with an anterior approach. SUBJECTIVE: The patient is a 66-year-old male. The patient is from [place]. He reports that he is feeling really "groggy" right now. The patient lives in his home with his . He reports that prior to admission he was independent with ADLs. He does have a tub/shower combination. He is going to be looking for some adaptive equipment but he may need to have some issued. PAST MEDICAL HISTORY: Past medical history can be found in the patient's medical record. OBJECTIVE FINDINGS: General observations: The patient did seem to have a flatter affect and was slower to process through some of the information but was a good participant. Activities of daily living: The patient was issued a bolt machine operator and sock aide. Demonstration on how to doff socks with the bolt machine operator was given and he was able to do so with min assist. The patient was also shown how to don socks with the sock aide. The patient needed min assist in order to complete the task and cues to follow through with this as well. The patient was also issued a bath sponge and a long handled shoe horn for more independence at home. Transfers: The patient was able to transfer from sit to stand with mod assist. He was able to stand at sink x3 minutes to complete simple hygiene activities with contact guard to min assist for balance. He then transferred to a wheelchair with min assist and verbal cues for correct placement of hands. ASSESSMENT: At this time the patient's cognition was slightly skewed from the medications. He would benefit from another session to review adaptive equipment for home. He was issued all four adaptive devices to be more independent with dressing self, bathing, and donning shoes. Short-Term Goals: To be met by discharge from inpatient: Patient will be able to dress self independently with use of adaptive equipment. Patient will be able to complete a toilet transfer independently. Patient will be able to complete a shower/tub transfer independently. Long-Term Goals: To be met following discharge from inpatient: Patient will be discharged home, demonstrating independence and safety with all functional transfers and with use of adaptive equipment. TREATMENT PLAN: Patient will be seen B.I.D during the week and one time per day over the weekend as an inpatient to address the above goals and objectives. INITIAL TREATMENT: Treatment today consisted of the initial evaluation followed by demonstration and use of adaptive equipment. The patient needed min assist to verbal cues in order to complete task. The patient completed standing task with min assist. GISSEL
--- NOTE | 2016-04-26 16:28 | PT AM DAY ---
Diagnosis : Left Total Hip Arthroplasty AM - Physical Therapy S: The patient states his stomach is a little upset this morning. O: The patient ambulated to the elevators via walker. He was then wheeled down to therapy where he received an application of moist heat pack x20 minutes including set up to the left hip. He performed therapeutic exercises including quad sets, heel slides, hip abduction/adduction, short arc quads, sit to stands , box step ups on the #3 box, ambulation, wall pulleys while standing, and arm bike x5 minutes forward and 5 minutes backward. He then ambulated to the elevators with walker and contact guard assist. He was then wheeled back up to his room where he was left in bed with call light in place and ice on his left hip. A: The patient is doing very well. He does become short of breath and has very decreased activity tolerance; however, he does follow directions and is making safe decisions. We may do stairs this afternoon before he is discharged. P: Continue seeing patient BID during the week and one time per day over the weekend for transfers, ambulation, and range of motion/strengthening exercises. MTDD
--- NOTE | 2016-04-26 16:31 | PT PM DAY ---
Diagnosis : Left Total Hip Arthroplasty PM - Physical Therapy S: The patient states he is ready to go home. O: The patient ambulated to the elevator with walker and contact guard assist. He was wheeled down to therapy where he received an application of moist heat pack x20 minutes including set up to the left hip. He performed therapeutic exercises including quad sets, heel slides, short arc quads, hip abduction/adduction, sit to stands, and box step ups on the #3 box. He then ambulated all the way to the stairwell in the hallway with walker and contact guard assist. He then ascended and descended one flight of stairs with walker and contact guard assist. He was then wheeled back to his room where he was left with call light within reach. A: The patient did desaturate once we did get back into his room. The therapist did put the oxygen back on him and did notify nursing as well as respiratory therapy. The plan is for the patient to go home in the morning. P: Continue seeing patient BID during the week and one time per day over the weekend for transfers, ambulation, and range of motion/strengthening exercises. MTDD
[2016-04-27] MEDS: oxyCODONE-ACETAMINOPHEN 5-325 TAB PO PRN ×3 (01:55→09:57)
[2016-04-27] MEDS: LEVOTHYROXINE 112 MCG TABLET PO SCH (05:30)
[2016-04-27 07:59] VITALS: RESP 18; TEMP 97.5
[2016-04-27] MEDS: Rivaroxaban Tab 10 MG TAB PO SCH (08:42)
[2016-04-27] MEDS: LISINOPRIL 5 MG TABLET PO SCH (08:43)
[2016-04-27] MEDS: DOCUSATE 100 MG CAPSULE PO SCH (08:43)
[2016-04-27] MEDS: DILTIAZEM 60 MG PO SCH (09:09)
--- NOTE | 2016-04-27 09:22 | ORTHO.PROG ---
Last Taken Vital Signs: Vital Signs - Last Taken Temperature 97.5 F 04/27/16 07:58 Pulse Rate 82 04/27/16 07:58 Respiratory Rate 18 04/27/16 07:58 Blood Pressure 136/76 04/27/16 07:58 Pulse Ox 95 04/27/16 07:58 Subjective: Patient's pain control is good on oral pain medication he feels he is getting around well leg feels stiff when he first gets up and going. Objective: Examination shows that the leg has a mild amount of swelling and the vacuum seal dressing is in place. Motor and sensory exam is intact with good pulses and brisk refill. Popliteal adductor hiatus pain. Good mobility and walker and observing gait this morning as well as getting up and down from a chair. Does not require assist Intake and Output - 8hrs 04/26/16 04/26/16 04/27/16 04/27/16 13:59 21:59 05:59 13:59 Intake: IV 500 Intake Oral Amount 240 800 500 120 Output: Output, Urine Amount 175 150 400 Other: Percent Meal Consumed 100% 50% 100% Number of Voids 1 1 1 Weight 131.814 kg 131.814 kg Weight Measurement Method Standing Scale Vital Signs (24 hrs) Temp Pulse Pulse Resp BP BP Pulse Ox 04/27/16 07:58 97.5 F 82 18 136/76 95 04/27/16 05:00 97.0 F 98 20 140/98 93 04/27/16 03:16 93 04/27/16 00:28 98.3 F 97 20 140/86 90 04/26/16 21:00 97.9 F 94 20 121/81 91 04/26/16 19:00 20 04/26/16 18:58 90 04/26/16 18:50 97 04/26/16 16:57 98.9 F 97 20 112/75 90 04/26/16 12:02 98.7 F 95 18 130/84 92 Assessment: Left total hip replacement Patient with multiple medical issues including most likely a new onset of diabetes or was not recognized before. Patient did not wish to take diabetes medication and wishes to discuss this with Dr. Reynolds. Plan: Patient will be discharged home today and begin physical therapy at the beginning of next week. He is to leave dressing in place until approximately postoperative day tendon this can be removed in physical therapy. Patient has a follow-up appointment on May 08 in [place], dani can be removed earlier if skin is irritated with physical therapy. He will restart his regular medications that he was taking at home including Xarelto. Patient to follow up with Dr. Reynolds in [place] in regard to medical issues and likelihood of new-onset diabetes.
--- NOTE | 2016-04-27 11:21 | DCSUMMARY ---
Hospitalization Summary Admit Date: 04/23/16 Discharge Date: 04/27/16 Primary Diagnosis:: left hip osteoarthritis status post total hip replacemen Hospital Course: This is a 66-year-old male that was admitted by Dr. Claire for a left total hip replacement which was done on 04/23/2016, see his note for further details of procedure. He had long-standing hip arthritis that did not respond to anti- inflammatories. We were asked to see the patient for medical issues. In terms of his hip placement, he did well with therapy, but was somewhat slow to progress, had some nausea with pain medications but did much better with Percocet, and had DVT prophylaxis with Xarelto as he was on that for atrial fibrillation and stroke prevention. He has been cleared from therapy and from orthopedics on today. In terms of his issues medically, we found that he has diabetes. The patient was very resistant to doing any medication therapy for his diabetes and stated several times that he did not have it. I finally recommended to consider diet and exercise changes as his primary treatment for now and to follow with his primary care provider, Dr. Reynolds. The patient's hypertension was under good control here, but he would likely benefit from an increase in his JAYDON inhibitor due to proteinuria. The patient had proteinuria and I did a workup to look for possible multiple myeloma given the patient age, and that was a negative workup. It is likely due to hypertension and diabetes mellitus type II. The patient has stage III chronic kidney disease and his medications were adjusted for that clearance. I told him to avoid anti-inflammatories the rest of his life. Exam - Vitals Vital Signs: Vital Signs Temperature 97.5 F Temperature Source Temporal Artery Scan Pulse Rate [Pulse Oximeter] 82 Pulse Rate [Apical] 90 Pulse Rate 64 Respiratory Rate 18 Blood Pressure [Left Arm] 140/98 Blood Pressure [Right Arm] 136/76 Blood Pressure 121/79 Pulse Ox 95 Oxygen Flow Rate 1 Oxygen Flow Rate 3 Oxygen Delivery Method Room Air Height 6 ft 1 in Weight 290 lb 9.602 oz Data Perinent Studies: Laboratory Results 04/23/16 04/23/16 04/24/16 Range/Units 15:51 16:05 05:30 WBC (4.8-10.8) 10^3/uL RBC (4.70-6.10) 10^6/uL Hgb (14.0-18.0) g/dL Hct (42.0-52.0) % MCV (80-90) FL MCH (27-31) PG MCHC (33-37) g/dL RDW Std Deviation (39-50) fL RDW Coeff of Kaelyn (11.5-14.5) % Plt Count (140-350) 10*3/uL MPV (7.4-12.2) FL Sodium (135-145) meq/L Potassium (3.8-5.2) meq/L Chloride (98-112) meq/L Carbon Dioxide (23-33) meq/L Anion Gap (5-20) BUN (7-22) mg/dL Creatinine (0.70-1.50) mg/dL Estimated GFR (>60 ml/min/1.73m(2)) BUN/Creatinine Ratio (6-20) Glucose (78-110) mg/dL Mean Blood Glucose 135.112 mg/dL Hemoglobin A1c 6.64 H (4.2-6.0) % Calculated Osmolality (267-292) mOsm/kg Calcium (8.7-10.7) mg/dL Total Protein (PEP) (6.3 - 7.9) g/dL Albumin (PEP) (3.4-4.7) g/dL Albumin/Globulin Ratio 3.06 (()) % Xkgif-8-Dlqvbcpxi (0.1-0.3) g/dL Huewe-7-Gsnylgljm (0.6-1.0) g/dL Beta Globulins (0.7-1.2) g/dL Gamma Globulins (0.6-1.6) g/dL PEP Impression (()) Ur Random Albumin 75 (()) % U Random Total Protein 18 (()) mg/dL Ur 24 Hour Volume 775 ML U Random f-8-Jedujhhn 3 (()) % U Random d-3-Lxtqltil 7 (()) % U Random Beta Globulin 9 (()) % U Random Gamma Glob 5 (()) % Urine PEP Impression See comments (()) Urine Immunofixation Pending 04/24/16 04/25/16 04/26/16 Range/Units 05:53 05:28 04:45 WBC 14.87 H 14.07 H 10.28 (4.8-10.8) 10^3/uL RBC 4.94 4.71 4.53 L (4.70-6.10) 10^6/uL Hgb 15.5 14.7 14.4 (14.0-18.0) g/dL Hct 46.8 45.5 44.2 (42.0-52.0) % MCV 94.7 H 96.6 H 97.6 H (80-90) FL MCH 31.4 H 31.2 H 31.8 H (27-31) PG MCHC 33.1 32.3 L 32.6 L (33-37) g/dL RDW Std Deviation 45.2 47.1 47.7 (39-50) fL RDW Coeff of Kaelyn 13.4 13.6 13.5 (11.5-14.5) % Plt Count 167 162 133 L (140-350) 10*3/uL MPV 11.2 11.6 11.6 (7.4-12.2) FL Sodium 139 137 139 (135-145) meq/L Potassium 4.0 3.9 4.1 (3.8-5.2) meq/L Chloride 106 105 104 (98-112) meq/L Carbon Dioxide 25 26 27 (23-33) meq/L Anion Gap 8 6 8 (5-20) BUN 29 H 32 H 37 H (7-22) mg/dL Creatinine 1.2 1.4 1.5 (0.70-1.50) mg/dL Estimated GFR > 60 51 47 (>60 ml/min/1.73m(2)) BUN/Creatinine Ratio 24.16 H 22.85 H 24.66 H (6-20) Glucose 154 H 126 H 133 H (78-110) mg/dL Mean Blood Glucose mg/dL Hemoglobin A1c (4.2-6.0) % Calculated Osmolality 296.0 H 292.0 298.0 H (267-292) mOsm/kg Calcium 8.8 8.7 9.0 (8.7-10.7) mg/dL Total Protein (PEP) 5.3 L (6.3 - 7.9) g/dL Albumin (PEP) 3.0 L (3.4-4.7) g/dL Albumin/Globulin Ratio 1.30 (()) % Meram-8-Xniaesuct 0.3 (0.1-0.3) g/dL Noyxz-4-Zkevpajvq 0.7 (0.6-1.0) g/dL Beta Globulins 0.8 (0.7-1.2) g/dL Gamma Globulins 0.6 (0.6-1.6) g/dL PEP Impression See comments (()) Ur Random Albumin (()) % U Random Total Protein (()) mg/dL Ur 24 Hour Volume ML U Random q-3-Dxiyqffj (()) % U Random k-7-Enhkcdpw (()) % U Random Beta Globulin (()) % U Random Gamma Glob (()) % Urine PEP Impression (()) Urine Immunofixation Images may be reviewed in [facility]. Patient Problems - Patient Problem List (1) Status post left hip replacement Current Visit: Yes Status: Acute (2) Atrial fibrillation Current Visit: Yes Status: Acute Qualifiers: Atrial fibrillation type: chronic Qualified Description: Chronic atrial fibrillation Qualifier Code(s): (I48.2) Chronic atrial fibrillation (3) CKD (chronic kidney disease), stage III Current Visit: Yes Status: Acute (4) Diabetes mellitus type II, controlled Current Visit: Yes Status: Acute Qualifiers: Diabetes mellitus complication status: without complication Diabetes mellitus skilled nursing insulin use: without intermodal truck driver use Qualified Description : Controlled type 2 diabetes mellitus without complication, without long-term current use of insulin Qualifier Code(s): (E11.9) Type 2 diabetes mellitus without complications (5) Hypertension Current Visit: Yes Status: Acute Qualifiers: Hypertension type: essential hypertension Qualified Description: Essential hypertension Qualifier Code(s): (I10) Essential (primary) hypertension (6) Proteinuria Current Visit: Yes Status: Acute Qualifiers: Proteinuria type: unspecified Qualified Description: Proteinuria, unspecified type Qualifier Code(s): (R80.9) Proteinuria, unspecified (7) Hip arthritis Current Visit: Yes Status: Acute (8) Hypothyroidism Current Visit: Yes Status: Acute Qualifiers: Hypothyroidism type: acquired Qualified Description: Acquired hypothyroidism Qualifier Code(s): (E03.9) Hypothyroidism, unspecified
--- NOTE | 2016-04-29 11:34 | PT AM DAY ---
Diagnosis : Left Total Hip Arthroplasty AM - Physical Therapy S: The patient states he is feeling good. He states his is coming to get him after therapy this morning. O: The patient ambulated approximately 75 feet with walker and contact guard assist. He was then wheeled down to therapy where he performed therapeutic exercises including supine bridges, partial sit ups, quad sets, heel slides, short arc quads, hip abduction/adduction, sit to stands, box step ups on the #3 box, NuStep x5 minutes, arm bike x10 minutes. He then ambulated another 75 feet with walker and contact guard assist. The patient was wheeled back up to his room where he was left with call light in place. Nursing was notified. A: The patient has met all goals for therapy. P: Patient will be discharged to home. GISSEL
[2016-04-29 14:59] LABS: 24 HOUR URINE PROTEIN CONCENTR 5.3 mg/dL
== END 2016-04-27 11:55 | disposition home or self-care (01) | DRG 470 ==
LOC: OPS 04-23 06:00 → MED/SURG 04-23 13:15 → OPS 04-23 13:15
PROVIDERS: ADMIT Orthopaedic Surgery; ATTEND Orthopaedic Surgery
PROC: 0SRB039 Replacement of Left Hip Joint with Ceramic Synthetic Substitute, Cemented, Open Approach (ICD-10-PCS; principal; 2016-04-23 08:00)
DX: M16.12 Unilateral primary osteoarthritis, left hip (principal); I48.91 Unspecified atrial fibrillation; N18.3 Chronic kidney disease, stage 3 (moderate); E11.9 Type 2 diabetes mellitus without complications; I10 Essential (primary) hypertension; R80.9 Proteinuria, unspecified; E03.9 Hypothyroidism, unspecified
CPT/HCPCS: 36415; 73502; 76001; 76770; 80048; 82570; 83036; 84155; 84156; 84165; 84166; 85027; 94150; 94761; 97010; 97110; 97116; 97162; 97165; 97530; 97535; A4216; J0690; J1170; J1580; J1644; J1885; J1940; J2001; J2250; J2270; J2405; J2765; J3010; J7030; J7040; J7050; J7120; S0020

== ENCOUNTER → 2016-04-22 | Outpatient (CLI) | payer OTHER, BC ==
[2016-04-22 13:35] LABS: BILIRUBIN,URINE NEGATIVE (NEG); CLARITY,URINE CLEAR (CLEAR); GLUCOSE, URINE (UA) NEGATIVE (NEG); LEUKOCYTE ESTERASE ,URINE NEGATIVE (NEG); NITRATE,URINE NEGATIVE (NEG); OCCULT BLOOD,URINE NEGATIVE (NEG); PH,URINE 5.5 (5.0-8.5); PROTEIN,URINE 100 mg/dl (NEG)
[2016-04-22 13:41] LABS: RBC,URINE 0-1 /hpf; URINE SAMPLE TYPE VOIDED SPECIMEN; WBC,URINE 0
--- NOTE | 2016-04-22 14:11 | DI ---
XR HIP COMPLETE MIN 2VW U/L,04/22/2016 1:48 PM: Clinical History: Left hip pain. Previous Exam: None at this facility. Findings: 3 views of the right hip are obtained, and demonstrate anatomic alignment without fractures. There is loss of joint space within the left hip with subchondral cyst formation. Patient is status post right total hip arthroplasty. There is dried stool within the rectum. There is increased new bone formation at the head neck junction of the left proximal femur. Impression: Full-thickness osteochondral defects of the left hip with subchondral cyst formation.
== END ==
LOC: LAB 13:04
PROVIDERS: ATTEND Orthopaedic Surgery
DX: M16.12 Unilateral primary osteoarthritis, left hip (principal); M25.552 Pain in left hip
CPT/HCPCS: 36415; 73502; 81001; 86850; 86900; 86901; G0463